=== PATIENT | female | born 1980 | race Caucasian/White ===

== ENCOUNTER → 2022-05-26 | Outpatient (CLI) | payer BC | LOC: M PLAIMG 09:35 | PROVIDERS: ATTEND Psychiatry & Neurology Neurology | DX: D16.4 Benign neoplasm of bones of skull and face (principal); R42 Dizziness and giddiness; G43.909 Migraine, unspecified, not intractable, without status migrainosus ==

== ENCOUNTER 2022-07-17 10:37 | Day surgery (SDC) | payer BC ==
[~2022-07-17] VITALS: Ht 167.6 cm; Wt 108.9 kg
[~2022-07-17 10:37] MED LIST: LINZ145C PO; NS 1,000 ML IV ONE; RIME75TA PO; SEMA0.5P SQ; TOPI100T9 PO
[2022-07-17] MEDS ORDERED: ONDANSETRON 4MG 2ML VIAL IV ONE (12:40)
[2022-07-17] MEDS ORDERED: LIDOCAINE 2% 100MG/5ML SDV (FOR ANES.) As Ordered ONE (12:54)
[2022-07-17] MEDS ORDERED: propofoL 500 MG/50 ML VIAL As Ordered ONE (12:54)
[2022-07-17] MEDS ORDERED: fentaNYL 100 MCG/2 ML INJECTION As Ordered ONE (13:21)
[2022-07-17 14:00] VITALS: BP 137/76
== END 2022-07-17 17:10 | disposition home or self-care (01) ==
LOC: M OPP 10:37
PROVIDERS: ATTEND Internal Medicine Gastroenterology
DX: D12.5 Benign neoplasm of sigmoid colon (principal); K63.5 Polyp of colon; K58.1 Irritable bowel syndrome with constipation; K64.8 Other hemorrhoids; Q43.8 Other specified congenital malformations of intestine; G43.909 Migraine, unspecified, not intractable, without status migrainosus; F17.200 Nicotine dependence, unspecified, uncomplicated; Z79.899 Other long term (current) drug therapy; Z79.85 Long-term (current) use of injectable non-insulin antidiabetic drugs; Z80.41 Family history of malignant neoplasm of ovary
CPT/HCPCS: 45385; 88305; J2405; J3010